=== PATIENT | female | born 1980 | race Caucasian/White ===

== ENCOUNTER → 2020-10-17 | Outpatient (CLI) | payer BC, OTHER | LOC: ULTRA 14:01 | PROVIDERS: ATTEND Nurse Practitioner | DX: N63.10 Unspecified lump in the right breast, unspecified quadrant (principal) ==

== ENCOUNTER → 2020-10-22 | Outpatient (CLI) | payer BC, OTHER | END | disposition home or self-care (01) | LOC: ULTRA 10:00 | PROVIDERS: ATTEND Nurse Practitioner | DX: N60.01 Solitary cyst of right breast (principal); N64.4 Mastodynia ==